=== PATIENT | female | born 1965 | race Caucasian/White ===

== ENCOUNTER 2024-06-25 08:34 | Day surgery (SDC) | payer MEDICAID ==
[2024-06-25] MEDS: Lactated Ringers 1,000 ML IV SCH (09:16)
[2024-06-25] MEDS ORDERED: Midazolam 1 MG/ML 2 ML SDV ONE (09:46)
[2024-06-25] MEDS ORDERED: fentaNYL 50 MCG/ML SDV ONE (09:46)
[2024-06-25] MEDS ORDERED: Propofol 200 MG/20 ML SDV ONE ×2 (09:46→11:05)
== END 2024-06-25 13:25 | disposition home or self-care (01) ==
LOC: JP.SDS 08:34
PROVIDERS: ATTEND Surgery
DX: Z12.11 Encounter for screening for malignant neoplasm of colon (principal); K22.70 Barrett's esophagus without dysplasia; K31.7 Polyp of stomach and duodenum; K21.00 Gastro-esophageal reflux disease with esophagitis, without bleeding
CPT/HCPCS: 00813; 43239; 45378; 88305; 88312; J2250; J2704; J3010; J7120